=== PATIENT | male | born 1960 | race Caucasian/White ===

== ENCOUNTER 2016-09-24 08:25 | Emergency (ER) ==
--- NOTE | 2016-09-24 08:38 | ED.PDOC ---
General ED Provider: Dr. JEAN-PAUL BALL JR Chief Complaint: Shoulder Pain/Injury Stated Complaint: AT WORK WHILE WALKING DOWN THE STEPS LOST BALANCE. FELT SEVERE PAIN IN LEFT SHOULDER. [End]08/23/16 1300 98.5 83 20 94% 155/98 ...GERARD 03:30 AM. DID NOT HELP THE PAIN. LEFT SHOULDER PAIN. PAIN INCREASES WITH MOVEMENT AND TURNING.[End]left anteriolateral note gerard last night- kept him awake, hyper Time Seen by Physician: 08:55 Mode of Arrival: Walk-In Information Source: Patient Exam Limitations: No limitations Nursing and Triage Documentation Reviewed and Agree: No Review of Systems - Review Of Systems Constitutional: Reports: No symptoms Eyes: Reports: No symptoms Ears, Nose, Mouth, Throat: Reports: No symptoms (except chronic itching) Respiratory: Reports: No symptoms Cardiac: Reports: No symptoms GI: Reports: No symptoms : Reports: No symptoms Musculoskeletal: Reports: Joint pain (knees, now left shoulder) Skin: Reports: No symptoms Neurological: Reports: No symptoms Endocrine: Reports: No symptoms Hematologic/Lymphatic: Reports: No symptoms All Other Systems: Other Past Medical History - Past Medical History Endocrine: Reports: None Cardiovascular: Reports: Hypertension Respiratory: Reports: None (skin condition nose and upper lip) Hematological: Reports: None Gastrointestinal: Reports: None Genitourinary: Reports: None Neuro/Psych: Reports: None Musculoskeletal: Reports: Arthritis (ARTHRITIS IN BOTH KNEES) Cancer: Reports: None - Surgical History General Surgical History: Reports: Cholecystectomy, Hernia Repair (HERNIA SURGERY 2009), Other (SINUS SURGERY 04/05) - Family History Family History: Reports: Unknown Physical Exam - Physical Exam Appearance: Well-appearing, Thin Pain Distress: Moderate Eyes: MAXIME, EOMI, Conjunctiva clear ENT: Ears normal, Nose normal, Oropharynx normal Neck: Supple Respiratory: Airway patent, Breath sounds clear, Breath sounds equal, Respirations nonlabored Cardiovascular: RRR, Pulses normal, No rub, No murmur GI/: Soft, Nontender, No masses, Bowel sounds normal, No Organomegaly Musculoskeletal: Limited ROM (left shoulder labrum signs note negative x-ray) Skin: Warm, Dry, Normal color Neurological: Sensation intact, Motor intact, Reflexes intact, Cranial nerves intact, Alert, Oriented Psychiatric: Affect appropriate, Mood appropriate Critical Care Note - Critical Care Note Total Time (mins): 0 Course - Course Orders, Labs, Meds: Lab Review 09/24/16 09:33 Urine Opiates Screen Positive Ur Oxycodone Screen Negative Urine Methadone Screen Negative Ur Propoxyphene Screen Negative Ur Barbiturates Screen Negative U Tricyclic Antidepress Negative Ur Phencyclidine Scrn Negative Ur Amphetamine Screen Negative U Methamphetamines Scrn Negative U Benzodiazepines Scrn Negative Urine Cocaine Screen Negative U Cannabinoids Screen Negative Orders Category Date Time Status Splint [ED SPLINT APPLICATION] .ONCE EMERGENCY 09/24/16 09:29 Ordered DRUG SCREEN (RAPID FOR ED) [DRUG SCREEN, URINE, RAPID] LAB 09/24/16 09:28 Uncollected Stat SHOULDER, LEFT MIN 2V Stat RADS 09/24/16 08:54 Completed Vital Signs: Temp Pulse Resp BP Pulse Ox 09/24/16 08:25 98.5 F 83 20 155/98 H 94 L Departure - Departure Time of Disposition: 09:37 Disposition: HOME SELF-CARE Discharge Problem: Injury of shoulder region Instructions: Shoulder Sprain (ED) Condition: Good Pt referred to PMD for follow-up: Yes Additional Instructions: limit use of left shoulder for three days recommend recheck PMD 2-7 days consider MRI of shoulder if not resolved consider orthopedic evaluation for possible shoulder labral tear XRAYS SHOW AC-JOINT ARTHRITIS, NO ACUTE CHANGES Prescriptions: Naproxen [Naprosyn] 500 mg PO Q12HR PRN #30 tablet PRN Reason: PAIN Tramadol HCl [Ultram] 50 mg PO Q6H PRN #14 tablet PRN Reason: PAIN Allergies/Adverse Reactions: Allergies No Known Allergies Allergy (Unverified 09/24/16 08:44) Home Medications: Ambulatory Orders Aspirin [Aspir-Low] 81 mg PO EVERY OTHER DAY 09/24/16 Doxycycline Monohydrate 50 mg PO BID 09/24/16 Hydrochlorothiazide 25 mg PO DAILY 09/24/16 Hydrocodone/Acetaminophen [[place] 5-325 Tablet] 5 mg PO PRN PRN 09/24/16 Lisinopril 20 mg PO DAILY 09/24/16 Naproxen [Naprosyn] 500 mg PO Q12HR PRN #30 tablet 09/24/16 Tramadol HCl [Ultram] 50 mg PO Q6H PRN #14 tablet 09/24/16
[2016-09-24 08:47] VITALS: BP 155/98; TEMP 98.5; BMI 30.6
--- NOTE | 2016-09-24 09:26 | DI ---
Exam: Three views left shoulder Clinical indication: Fall with left shoulder pain. Findings: There is mild degenerative changes at the left AC joint. Otherwise, there are no fractures, disloca tions or other significant bony abnormalities. The visualized pulmonary parenchyma and ribs are unr emarkable. Impression: 1. Mild left AC joint degenerative changes. 2. Otherwise negative radiographs of the left shoulder.
[2016-09-24 09:49] LABS: COCAIN SCREEN,URINE NEGATIVE (NEGATIVE)
== END 2016-09-24 09:59 | disposition home or self-care (01) ==
LOC: ED 08:25
DX: S49.92XA Unspecified injury of left shoulder and upper arm, initial encounter (principal); W10.9XXA Fall (on) (from) unspecified stairs and steps, initial encounter; Y99.0 Civilian activity done for income or pay
CPT/HCPCS: 80306; 99283